=== PATIENT | male | born 1970 | race Caucasian/White ===

== ENCOUNTER 2023-02-22 10:29 | Emergency (ER) | payer BC, OTHER ==
[2023-02-22 10:33] VITALS: BP 155/100; PULSE 100; RESP 16; TEMP 98; BMI 34.1
[2023-02-22] MEDS ORDERED: AMOX TR/POT CLAV 875MG/125MG TABLETS (FP) PO ONE (10:45)
[2023-02-22] MEDS ORDERED: DIPHTH,PERTUSS(ACELL),TET 0.5 ML DISP.SYRIN IM ONE ×2 (10:46→11:24)
[2023-02-22] MEDS ORDERED: RABIES IMMUNE GLOBULIN 300 UNITS/1 ML VIAL IM ONE (10:59)
[2023-02-22] MEDS ORDERED: RABIES VACCINE (PCEC)/PF 2.5 UNIT/VIAL IM ONE ×2 (11:00→11:23)
[2023-02-22] MEDS ORDERED: AMOX TR/POT CLAV 875MG/125MG TABLETS (FP) ONE (11:22)
[2023-02-22] MEDS ORDERED: RABIES IMMUNE GLOBULIN 300 UNITS/1 ML VIAL ONE (11:24)
== END 2023-02-22 12:15 | disposition home or self-care (01) ==
LOC: FER 10:29
PROC: 3E0234Z Introduction of Serum, Toxoid and Vaccine into Muscle, Percutaneous Approach (ICD-10-PCS; principal; 2023-02-22)
PROC: 3E0234Z Introduction of Serum, Toxoid and Vaccine into Muscle, Percutaneous Approach (ICD-10-PCS; 2023-02-22)
PROC: 3E0234Z Introduction of Serum, Toxoid and Vaccine into Muscle, Percutaneous Approach (ICD-10-PCS; 2023-02-22)
DX: S70.312A Abrasion, left thigh, initial encounter (principal); S71.142A Puncture wound with foreign body, left thigh, initial encounter; W55.01XA Bitten by cat, initial encounter; W55.03XA Scratched by cat, initial encounter
CPT/HCPCS: 90375; 90675; 90715; 99284-25

== ENCOUNTER 2023-02-25 07:13 | Emergency (ER) | payer OTHER ==
[2023-02-25 07:28] VITALS: BP 144/99; PULSE 90; RESP 18; TEMP 98.4; BMI 33.0
[2023-02-25] MEDS ORDERED: RABIES VACCINE (PCEC)/PF 2.5 UNIT/VIAL IM ONE ×2 (07:32→07:37)
== END 2023-02-25 08:04 | disposition home or self-care (01) ==
LOC: FER 07:13
PROC: 3E0234Z Introduction of Serum, Toxoid and Vaccine into Muscle, Percutaneous Approach (ICD-10-PCS; principal; 2023-02-25)
DX: Z23 Encounter for immunization (principal)
CPT/HCPCS: 90675; 99283-25

== ENCOUNTER 2023-03-01 12:55 | Emergency (ER) | payer OTHER ==
[2023-03-01] MEDS ORDERED: RABIES VACCINE (PCEC)/PF 2.5 UNIT/VIAL IM ONE ×2 (12:58→13:18)
[2023-03-01 13:16] VITALS: BP 142/56; PULSE 98; RESP 20; TEMP 98.4; BMI 33.0
== END 2023-03-01 13:18 | disposition home or self-care (01) ==
LOC: FER 12:55
PROC: 3E0234Z Introduction of Serum, Toxoid and Vaccine into Muscle, Percutaneous Approach (ICD-10-PCS; principal; 2023-03-01)
PROC: 3E0234Z Introduction of Serum, Toxoid and Vaccine into Muscle, Percutaneous Approach (ICD-10-PCS; 2023-03-01)
DX: Z29.14 Encounter for prophylactic rabies immune globulin (principal)
CPT/HCPCS: 90675; 99281-25

== ENCOUNTER 2023-03-08 11:59 | Emergency (ER) | payer OTHER ==
[2023-03-08] MEDS ORDERED: RABIES VACCINE (PCEC)/PF 2.5 UNIT/VIAL IM ONE ×2 (12:03→12:10)
[2023-03-08 12:13] VITALS: BP 125/80; PULSE 94; RESP 18; TEMP 98.2; BMI 32.8
== END 2023-03-08 12:24 | disposition home or self-care (01) ==
LOC: FER 11:59
PROC: 3E0234Z Introduction of Serum, Toxoid and Vaccine into Muscle, Percutaneous Approach (ICD-10-PCS; principal; 2023-03-08)
DX: Z29.14 Encounter for prophylactic rabies immune globulin (principal)
CPT/HCPCS: 90675; 99282-25